=== PATIENT | male | born 1985 | race African-American/Black ===

== ENCOUNTER 2024-07-27 12:14 | Emergency (ER) | payer SELFPAY ==
--- NOTE | ~2024-07-27 | XR_ITS ---
EXAMINATION: XR ankle RT min 3V, XR foot RT min 3V DATE: 07/27/2024 13:27 INDICATION: Right foot and ankle pain post injury TECHNIQUE: 1. Anteroposterior, oblique and lateral view of the affected ankle were obtained. 2. Dorsoplantar, two oblique and lateral views of the right foot were obtained. COMPARISON: None. FINDINGS: Right ankle: Comminuted intra-articular pilon fracture involving the anterior half of the distal tibia. The fractu re appears minimally displaced aside from a 4 mm lucent fracture gap along a portion of the central t ibial plafond seen on the lateral projection. No evident incongruity along the tibial plafond. No oth er fractures at the ankle. Small ankle joint effusion and mild soft tissue swelling about the ankle. Right foot: Alignment is normal. No fractures in the right foot. Joint spaces are normal. Soft tissues are unrema rkable. The soft tissues are unremarkable. IMPRESSION: 1. Minimally displaced comminuted intra-articular pilon fracture of the distal right tibia. Reviewed, dictated and finalized at location B. IMPRESSION: 1. Minimally displaced comminuted intra-articular pilon fracture of the distal right tibia.
[2024-07-27 12:22] VITALS: BP 125/59; PULSE 110; RESP 16; TEMP 36.6; O2SAT 96
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
--- OUTSIDE RECORDS SUMMARY | 2024-07-27 13:23 | XMS_ITS | Clinical Summary ---
Author Organization [facility] [employer] Address [address] [place] [address] Care Team Providers Care Instantizer Operator Name Role Phone Pcp, [address] Primary Care Provide r Unavailable Source Comments [facility] [employer] [employer]non-owned Affiliates and Associated Physician Practices is amultiple site organization consisting of ambulatory clinics and hospital sitesin [place], [place], [place] and [place]. This disclosure is being madepursuant to the Care Everywhere program and may not contain all information available regarding this patient. Last updated 18.[facility] [employer] [employer] Allergies Active Allergy Reactions Criticality Noted Date Comments Shellfish Allergy Unknown High 05/17/2019 Medications * Be aware that medications may not be up to date on this document. Alwaysverify current medications with the patient. Medication Sig Dispensed Refills Start Date End Date Status albuterol (PROVENTIL;VENTOLIN) (2.5 MG/3ML) 0.083% nebulizer solution 10/13/2018 Active montelukast (SINGULAIR) 10 MG tablet Take 10 mg by mouth once daily 01/12/2019 Active albuterol HFA (PROVENTIL;VENTOLIN;P ROAIR) 108 (90 Base) MCG/ACT inhaler TAKE 1-2 PUFFS BY MOUTH EVERY 4 TO 6 HOURS NEEDED . INHALE FULLY AND HOLD FOR 10 SECONDS 04/09/2019 Active albuterol (5 MG/ML) 0.5% 2.5 mg, ipratropium 0.02 % 0.5 mg Active SYMBICORT 160-4.5 MCG/ACT inhalerIndications:Mo derate persistent asthma, unspecified whether complicated (HCC) Inhale 1 puff by mouth 2 times daily 1 Inhaler 3 05/17/2019 Active Active Problems Problem Noted Date Diagnosed Date Atopic dermatitis 05/17/2019 Asthma 10/21/2017 Family History Medical History Relation Name Comments None Known Father None Known Mother Relation Name Status Comments Father Alive Mother Alive Social History Tobacco Use Types Packs/Day Years Used Date Smoking Tobacco: Some Days Cigars Smokeless Tobacco: Current Chew Comments:rarely Alcohol Use Standard Drinks/Week Comments Yes 0 (1 standard drink = 0.6 oz pur e alcohol) socially AUDIT-C Answer Date Recorded Frequency of Alcohol Consumption Monthly or less 05/17/2019 Average Number of Drinks 1 or 2 020 Frequency of Binge Drinking Not on file 05/04 Sex and Gender Information Value Date Recorded Sex Assigned at Not on file Gender Identity Not on file Sexual Orientation Not on file Last Filed Vital Signs Vital Sign Reading Time Taken Comments Blood Pressure 110/76 07/07/2019 3:27 PM SCARF GLUER Pulse 67 07/07/2019 3:27 PM SCARF GLUER Temperature 36.7 C (98 F) 07/07/2019 3:27 PM SCARF GLUER Respiratory Rate 17 07/07/2019 3:27 PM SCARF GLUER Oxygen Saturation 98% 07/07/2019 3:27 PM SCARF GLUER Inhaled Oxygen Concentration - - Weight 59.4 kg (131 lb) 07/07/2019 3:27 PM SCARF GLUER Height 167.6 cm (5' 6 ) 07/07/2019 3:27 PM SCARF GLUER Body Mass Index 21.14 07/07/2019 3:27 PM SCARF GLUER Plan of Treatment Health Maintenance Due Date Last Done Comments HIV SCREENING 02/21/2000 HEPATITIS C SCREENING 02/16/2003 DTAP/TDAP/TD VACCINES (1 - Tdap) 02/21/2004 HEPATITIS B VACCINE (1 of 3 - 19+ 3-dose series) 02/21/2004 PNEUMOCOCCAL VACCINE (1 of 2 - PCV) 02/21/2004 COVID-19 VACCINE ( - 2023-2 5 season) 2024 INFLUENZA VACCINE (#1) 2024 DEPRESSION SCREENING 05/04/2024 ZOSTER VACCINE (1 of 2) 2035 HIB VACCINE Aged Out No longer eligi ble based on patient's age to complete this topic HPV VACCINE Aged Out No longer eligi ble based on patient's age to complete this topic MENINGOCOCCAL (Group B) VACC INE SHARED DECISION-MAKING Aged Out No longer eligibl e based on patient's age to complete this topic MENINGOCOCCAL GROUPS A/C/Y/W VACCINE Aged Out No longer eligible b ased on patient's age to complete this topic Care Teams Instantizer Operator Relationship Specialty Start Date End Date PcpAnat [facility] 3rd PCP - General 05/31/24
--- OUTSIDE RECORDS SUMMARY | 2024-07-27 15:28 | XMS_ITS | Clinical Summary ---
Author Organization [facility] Address [address] [place] [address] Care Team Providers Care Plumbing Contractor Name Role Phone Pcp, [address] Primary Care Provide r Unavailable Source Comments [facility],non-owned Affiliates and Associated Physician Practices is amultiple site organization consisting of ambulatory clinics and hospital sitesin [place], [place], [place] and [place]. This disclosure is being madepursuant to the Care Everywhere program and may not contain all information available regarding this patient. Last updated 18.[facility] Allergies Active Allergy Reactions Criticality Noted Date [...] Comments Blood Pressure 110/76 07/07/2019 3:27 PM AIRPLANE CLEANER Pulse 67 07/07/2019 3:27 PM AIRPLANE CLEANER Temperature 36.7 C (98 F) 07/07/2019 3:27 PM AIRPLANE CLEANER Respiratory Rate 17 07/07/2019 3:27 PM AIRPLANE CLEANER Oxygen Saturation 98% 07/07/2019 3:27 PM AIRPLANE CLEANER Inhaled Oxygen Concentration - - Weight 59.4 kg (131 lb) 07/07/2019 3:27 PM AIRPLANE CLEANER Height 167.6 cm (5' 6 ) 07/07/2019 3:27 PM AIRPLANE CLEANER Body Mass Index 21.14 07/07/2019 3:27 PM AIRPLANE CLEANER Plan of Treatment Health Maintenance Due Date [...] age to complete this topic Care Teams Plumbing Contractor Relationship Specialty Start Date End Date PcpAnat [facility] 3rd PCP - General 05/31/24
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
[2024-07-27] MEDS: predniSONE 20 MG TABLET 40 MG PO (17:11)
[2024-07-27 17:15] VITALS: RESP 20
[2024-07-27] MEDS: ALBUTEROL SULFATE NEB 2.5 MG/3 ML INH 10 MG INHALATION (17:15)
[2024-07-27] MEDS: IPRATROPIUM BR 0.02% INH SOLN 0.5 MG/2.5 ML VIAL 0.1 MG INHALATION (17:15)
[2024-07-27 18:45] VITALS: RESP 20
[2024-07-27 18:59] VITALS: BP 128/80; PULSE 92; RESP 16; TEMP 36.6; O2SAT 96
== END 2024-07-27 19:26 | disposition home or self-care (01) ==
PROVIDERS: Emergency Provider Nurse Practitioner Family
DX: S82.871A Displaced pilon fracture of right tibia, initial encounter for closed fracture (principal); J45.901 Unspecified asthma with (acute) exacerbation; W17.89XA Other fall from one level to another, initial encounter
CPT/HCPCS: 29505; 73610; 73630; 94640; 99284; J7512